=== PATIENT | male | born 1960 | race Caucasian/White ===

== ENCOUNTER 2023-10-15 06:41 | Day surgery (SDC) | payer BC ==
[2023-10-15] MEDS ORDERED: Dextrose 5%-0.45% NaCl 1,000 ML IV SCH (07:00)
[2023-10-15] MEDS ORDERED: Midazolam 1 MG/ML 2 ML SDV ONE (07:05)
[2023-10-15] MEDS ORDERED: fentaNYL 100 MCG/2 ML SDV ONE (07:06)
[2023-10-15] MEDS ORDERED: fentaNYL 100 MCG/2 ML SDV IV ONE ×2 (08:21→08:22)
[2023-10-15] MEDS ORDERED: Midazolam 1 MG/ML 2 ML SDV IV ONE ×2 (08:22→08:23)
== END 2023-10-15 10:03 | disposition home or self-care (01) ==
LOC: DL.ENDO 06:41
PROVIDERS: ATTEND Internal Medicine Gastroenterology
DX: K29.50 Unspecified chronic gastritis without bleeding (principal); E11.9 Type 2 diabetes mellitus without complications; I10 Essential (primary) hypertension; K21.9 Gastro-esophageal reflux disease without esophagitis; R00.2 Palpitations; Z91.010 Allergy to peanuts; Z79.899 Other long term (current) drug therapy
CPT/HCPCS: 87077; J2250; J3010; J7042